=== PATIENT | male | born 1940 | race Asian ===

== ENCOUNTER 2024-03-06 16:23 | Emergency (ER) | payer OTHER ==
[~2024-03-06] VITALS: Ht 162.6 cm; Wt 63.5 kg
[2024-03-06 16:45] VITALS: BP_SYST 157; PULSE 76; RESP 18; TEMP 97.4; O2SAT 95
[2024-03-06 19:52] VITALS: BP_SYST 122; PULSE 88; RESP 18; TEMP 98; O2SAT 97
== END 2024-03-06 19:51 | disposition home or self-care (01) ==
LOC: SED 16:23
DX: S09.90XA Unspecified injury of head, initial encounter (principal); M54.50 Low back pain, unspecified; K21.9 Gastro-esophageal reflux disease without esophagitis; Z98.890 Other specified postprocedural states; W18.39XA Other fall on same level, initial encounter; Y93.89 Activity, other specified; Y92.89 Other specified places as the place of occurrence of the external cause; Y99.8 Other external cause status
CPT/HCPCS: 70450-TC; 72100; 99284